=== PATIENT | male | born 1960 | race Caucasian/White ===

== ENCOUNTER → 2017-03-19 | Outpatient (CLI) | payer BC ==
[2017-03-19 13:09] LABS: BASO # 0.1 x10^3/uL (0.0-0.2); BASO % 1 % (0-3); EOS # 0.5 x10^3/uL (0.0-0.7); EOS % 4 % (0-3); HEMATOCRIT 44.7 % (39.0-53.0); HEMOGLOBIN 15.3 g/dL (13.0-17.5); LYMPH # 3.3 x10^3/uL (1.0-4.8); LYMPH % 28 % (24-48); MEAN CORPUSCULAR HEMOGLOBIN 33 pg (25-35); MEAN CORPUSCULAR HGB CONC 34 g/dL (31-37); MEAN CORPUSCULAR VOLUME 97 fL (79-100); MONO # 0.9 x10^3/uL (0.0-1.1); MONO % 8 % (0-9); NEUT % 59 % (31-73); PLATELET COUNT 364 x10^3/uL (140-400); RED BLOOD COUNT 4.63 x10^6/uL (4.30-5.70); RED CELL DISTRIBUTION WIDTH 14.6 % (11.5-14.5); WHITE BLOOD COUNT 11.9 x10^3/uL (4.0-11.0)
[2017-03-19 13:12] LABS: ALBUMIN 3.7 g/dL (3.4-5.0); ALBUMIN/GLOBULIN RATIO 0.9 (1.0-1.7); C REACTIVE PROTEIN 2.4 mg/L (0-3.3); CALCIUM 8.8 mg/dL (8.5-10.1); CREATININE 0.9 mg/dL (0.7-1.3); GFR 86.7; POTASSIUM 3.7 mmol/L (3.5-5.1); TOTAL BILIRUBIN 0.2 mg/dL (0.2-1.0); TOTAL PROTEIN 7.8 g/dL (6.4-8.2)
[2017-03-19 14:24] LABS: SEDIMENTATION RATE 9 (0-15)
== END | disposition home or self-care (01) ==
LOC: LAB 12:19
PROVIDERS: ATTEND Specialist
DX: E55.9 Vitamin D deficiency, unspecified (principal)
CPT/HCPCS: 36415; 80053; 82306; 85025; 85651; 86140

== ENCOUNTER → 2021-06-29 | Outpatient (CLI) | payer MEDICARE, OTHER ==
--- NOTE | 2021-06-29 14:16 | RAD ---
XR CERVICAL SPINE 4-5V History: Neck pain Comparison: None. Technique: 5 views of the cervical spine. Findings: There are 7 non-rib bearing cervical vertebral segments. There is no evidence of fracture. No destructive osseous lesions are seen. Reversal the normal cervical lordosis. Mild multilevel cervical facet hypertrophy. Multilevel degenerative disc disease and degenerative end plate osteophytes, greatest at C6-C7. Uncovertebral hypertrophy greatest at C6-C7. Oblique views suggest bilateral neural foraminal narrowi ng at C7-T1 and left and C6-C7. Soft tissues are unremarkable. IMPRESSION: 1. Multilevel cervical spondylosis. Potential for neural foraminal narrowing at C6-C7 and C7-T1. If there is concern for radiculopathy, recommend MRI cervical spine for further evaluation. Electronically signed by: Kenan Bucio MD (06/29/2021 2:13 PM) [id number]
== END ==
LOC: LAB 09:30
PROVIDERS: ATTEND Physician Assistant
DX: M47.812 Spondylosis without myelopathy or radiculopathy, cervical region (principal); M48.03 Spinal stenosis, cervicothoracic region; M25.78 Osteophyte, vertebrae; M50.323 Other cervical disc degeneration at C6-C7 level
CPT/HCPCS: 72050